=== PATIENT | female | born 1950 | race Caucasian/White ===

== ENCOUNTER 2017-08-16 13:11 | Emergency (ER) | payer MEDICARE, BC ==
--- NOTE | 2017-08-16 15:04 | EDM.PDOC ---
ED HPI GENERAL MEDICAL PROBLEM - General Chief Complaint: Chest Pain Stated Complaint: CHEST PAIN Time Seen by Provider: 08/16/17 13:15 Source of Information: Reports: Patient, Family History Limitations: Reports: No Limitations - History of Present Illness INITIAL COMMENTS - FREE TEXT/NARRATIVE: 67 y.o.w.f in prev healthy condition, came to the ed withy her SO due to C/P starting spontaneously which she rates of 3/10. No N/V/D, no diaphoresis, no F/ C, no trauma or ant other acute medical issue. BP 119/63 Pulse 68 Temp 36.6 Pulse ox 97% on RA Onset Date: 08/16/17 Onset Time: 11:00 Duration: Improving Location: Reports: Chest Quality: Reports: Dull Severity: Mild Improves with: Reports: Rest Worsens with: Reports: Movement Context: Reports: Other (cp started spontaneously) Associated Symptoms: Reports: No Other Symptoms Treatments COURT OFFICER: Reports: Aspirin left chest Pain Score (Numeric/FACES): 3 - Related Data Allergies Allergy/AdvReac Type Severity Reaction Status Date / Time No Known Allergies Allergy Verified 04/06/14 19:48 Home Meds: Home Meds Cetirizine [ZyrTEC] 10 mg PO DAILY 04/06/14 [History] Gluc HCl/Csa/Yusuf Hy/Hyalur Ac [Glucosamine Chondroitin] 1 tab PO DAILY [History] Naproxen Sodium [Aleve] 220 mg PO BID 04/06/14 [History] Past Medical History Other Cardiovascular History: IRREGULAR HEART RATE "RACING" Other Dermatologic History: CYST ON UPPER BACK Social & Family History - Tobacco Use Smoking Status *Q: Never Smoker - Alcohol Use Days Per Week of Alcohol Use: 1 Number of Drinks Per Day: 1 Total Drinks Per Week: 1 - Recreational Drug Use Recreational Drug Use: No Drug Use in Last 12 Months: No - Living Situation & Occupation Living situation: Reports: ED ROS GENERAL - Review of Systems Review Of Systems: See Below Constitutional: Reports: No Symptoms HEENT: Reports: No Symptoms Respiratory: Reports: No Symptoms Cardiovascular: Reports: Chest Pain Endocrine: Reports: No Symptoms GI/Abdominal: Reports: No Symptoms : Reports: No Symptoms Musculoskeletal: Reports: No Symptoms Skin: Reports: No Symptoms Neurological: Reports: No Symptoms Psychiatric: Reports: No Symptoms Hematologic/Lymphatic: Reports: No Symptoms Immunologic: Reports: No Symptoms ED EXAM, GENERAL - Physical Exam Exam: See Below Exam Limited By: No Limitations General Appearance: Alert, WD/WN, No Apparent Distress Eye Exam: Bilateral Eye: Normal Inspection Ears: Normal External Exam Ear Exam: Bilateral Ear: Auricle Normal Nose: Normal Inspection, Normal Mucosa Throat/Mouth: Normal Inspection, Normal Lips Head: Atraumatic, Normocephalic Neck: Normal Inspection, Supple, Non-Tender Respiratory/Chest: No Respiratory Distress, Lungs Clear Cardiovascular: Normal Peripheral Pulses, Regular Rate, Rhythm, No Edema, No Gallop Peripheral Pulses: 1+: Radial (L) GI/Abdominal: Normal Bowel Sounds, Soft, Non-Tender, No Organomegaly (Female) Exam: Deferred Rectal (Female) Exam: Deferred Back Exam: Normal Inspection, Full Range of Motion Extremities: Normal Inspection, Normal Range of Motion, Non-Tender, No Pedal Edema Neurological: Alert, Oriented, CN II-XII Intact, Normal Cognition Psychiatric: Normal Affect, Normal Mood Skin Exam: Warm, Dry, Intact, Normal Color Lymphatic: No Adenopathy EKG INTERPRETATION EKG Date: 08/16/17 Time: 13:20 Rhythm: NSR Rate (Beats/Min): 74 [place]: Normal P-Wave: Present QRS: Normal ST-T: Normal QT: Normal Comparison: NA - No Prior EKG Course - Vital Signs Text/Narrative:: 67 y.o.w.f in prev healthy condition, came to the ed withy her SO due to C/P starting spontaneously which she rates of 3/10. No N/V/D, no diaphoresis, no F/ C, no trauma or ant other acute medical issue. Pt did not take omeprazole today. BP 119/63 Pulse 68 Temp 36.6 Pulse ox 97% on RA PE: WNWD W F In no acute discomfort, mild epicastric discomfort. Labs: CBC, BMP (BUN 23!)troponin Neg Impression: Atypical C/P Reexam: Pt improved, is in her usual state of health Plan: D/C with instructions Last Recorded V/S: Last Vital Signs Temp 36.6 C 08/16/17 13:15 Pulse 88 08/16/17 13:15 Resp 13 08/16/17 14:45 BP 107/59 L 08/16/17 14:45 Pulse Ox 97 08/16/17 14:45 - Orders/Labs/Meds Orders: Active Orders 24 hr Category Date Time Status EKG 12 Lead [EK] Routine Ther 08/16/17 13:18 Ordered Labs: Laboratory Tests 08/16/17 08/16/17 08/16/17 Range/Units 13:10 13:25 13:25 WBC 4.5 (4.5-12.0) X10-3/uL RBC 4.92 (3.23-5.20) x10(6)uL Hgb 14.6 (11.5-15.5) g/dL Hct 43.7 (30.0-51.3) % MCV 88.9 (80-96) fL MCH 29.6 (27.7-33.6) pg MCHC 33.3 (32.2-35.4) g/dL RDW 13.0 (11.5-15.5) % Plt Count 253 (125-369) X10(3)uL MPV 9.1 (7.4-10.4) fL Neut % (Auto) 64.7 (46-82) % Lymph % (Auto) 23.5 (13-37) % [place] % (Auto) 9.6 (4-12) % Eos % (Auto) 1 (1.0-5.0) % Baso % (Auto) 1 (0-2) % Neut # (Auto) 2.9 (1.6-8.3) # Lymph # (Auto) 1.1 (0.6-5.0) # [place] # (Auto) 0.4 (0.0-1.3) # Eos # (Auto) 0.1 (0.0-0.8) # Baso # (Auto) 0.0 (0.0-0.2) # D-Dimer, Quantitative (100-400) ng/mL Sodium 144 (135-145) mmol/L Potassium 3.9 (3.5-5.3) mmol/L Chloride 106 (100-110) mmol/L Carbon Dioxide 28 (21-32) mmol/L BUN 21 H (7-18) mg/dL Creatinine 0.9 (0.55-1.02) mg/dL Est Cr Clr Drug Dosing 56.78 mL/min Estimated GFR (MDRD) > 60 (>60) BUN/Creatinine Ratio 23.3 H (9-20) Glucose 92 (80-116) mg/dL Calcium 9.6 (8.6-10.2) mg/dL Total Bilirubin 0.7 (0.1-1.3) mg/dL Direct Bilirubin 0.13 (0.10-0.20) mg/dL AST 21 (5-25) IU/L ALT 28 (12-36) U/L Alkaline Phosphatase 85 (56-112) IU/L Troponin I (<0.017-0.056) ng/mL Total Protein 7.6 (6.0-8.0) g/dL Albumin 4.1 (3.2-4.6) g/dL Amylase 99 (25-115) U/L Urine Color Yellow (YELLOW) Urine Appearance Clear (CLEAR) Urine pH 6.0 (5.0-6.5) Ur Specific [place] 1.010 (1.010-1.025) Urine Protein Negative (NEGATIVE) mg/dL Urine Glucose (UA) Normal (NEGATIVE) mg/dL Urine Ketones Negative (NEGATIVE) mg/dL Urine Occult Blood Negative (NEGATIVE) Urine Nitrite Negative (NEGATIVE) Urine Bilirubin Negative (NEGATIVE) Urine Urobilinogen Normal (NEGATIVE) mg/dL Ur Leukocyte Esterase Negative (NEGATIVE) Urine WBC 0-5 (0) Ur Squamous Epith Cells Occasional (NS,R,O) Urine Bacteria Few H (NS) 08/16/17 08/16/17 Range/Units 13:25 13:25 WBC (4.5-12.0) X10-3/uL RBC (3.23-5.20) x10(6)uL Hgb (11.5-15.5) g/dL Hct (30.0-51.3) % MCV (80-96) fL MCH (27.7-33.6) pg MCHC (32.2-35.4) g/dL RDW (11.5-15.5) % Plt Count (125-369) X10(3)uL MPV (7.4-10.4) fL Neut % (Auto) (46-82) % Lymph % (Auto) (13-37) % [place] % (Auto) (4-12) % Eos % (Auto) (1.0-5.0) % Baso % (Auto) (0-2) % Neut # (Auto) (1.6-8.3) # Lymph # (Auto) (0.6-5.0) # [place] # (Auto) (0.0-1.3) # Eos # (Auto) (0.0-0.8) # Baso # (Auto) (0.0-0.2) # D-Dimer, Quantitative < 100 L (100-400) ng/mL Sodium (135-145) mmol/L Potassium (3.5-5.3) mmol/L Chloride (100-110) mmol/L Carbon Dioxide (21-32) mmol/L BUN (7-18) mg/dL Creatinine (0.55-1.02) mg/dL Est Cr Clr Drug Dosing mL/min Estimated GFR (MDRD) (>60) BUN/Creatinine Ratio (9-20) Glucose (80-116) mg/dL Calcium (8.6-10.2) mg/dL Total Bilirubin (0.1-1.3) mg/dL Direct Bilirubin (0.10-0.20) mg/dL AST (5-25) IU/L ALT (12-36) U/L Alkaline Phosphatase (56-112) IU/L Troponin I < 0.017 L (<0.017-0.056) ng/mL Total Protein (6.0-8.0) g/dL Albumin (3.2-4.6) g/dL Amylase (25-115) U/L Urine Color (YELLOW) Urine Appearance (CLEAR) Urine pH (5.0-6.5) Ur Specific [place] (1.010-1.025) Urine Protein (NEGATIVE) mg/dL Urine Glucose (UA) (NEGATIVE) mg/dL Urine Ketones (NEGATIVE) mg/dL Urine Occult Blood (NEGATIVE) Urine Nitrite (NEGATIVE) Urine Bilirubin (NEGATIVE) Urine Urobilinogen (NEGATIVE) mg/dL Ur Leukocyte Esterase (NEGATIVE) Urine WBC (0) Ur Squamous Epith Cells (NS,R,O) Urine Bacteria (NS) Departure - Departure Time of Disposition: 15:01 Disposition: Home, Self-Care 01 Condition: Good Clinical Impression: Atypical chest pain Instructions: Chest Pain Observation Referrals: Abdulaziz Vang MD [Primary Care Provider] - Forms: ED Department Discharge Additional Instructions: Please increase water intake, cont your current meds. Please take Omeprazole daily for 1 week at bed time. Please f/u, please come back to the ed if your symptoms get worse acutely. - My Orders Last 24 Hours: My Active Orders 08/16/17 13:18 EKG 12 Lead [EK] Routine - Assessment/Plan Last 24 Hours: My Active Orders 08/16/17 13:18 EKG 12 Lead [EK] Routine
[2017-08-16 16:47] VITALS: BP 107/59
--- NOTE | 2017-08-17 10:40 | CR ---
INDICATION: Chest pain. CHEST: An AP upright view of the chest was obtained portable 08/16/2017, and compared with 04/06/2014 and 04/03/2011, revealing evidence of exogenous obesity , as previously or increased compared with the previous study. The heart did not appear enlarged. The aorta is tortuous. Minimal calcification is suggested in the arch. Overlying EKG leads are noted. An active infiltrate or effusion was not identified. IMPRESSION: 1. No acute process. 2. Exogenous obesity. 3. ASD aorta. MTDD
== END 2017-08-16 15:12 | disposition home or self-care (01) ==
LOC: FB.ED 13:11
DX: R07.89 Other chest pain (principal); Z79.899 Other long term (current) drug therapy
CPT/HCPCS: 36415; 71045; 80048; 80076; 81001; 82150; 84484; 85025; 85379; 93005; 93010; 99285

== ENCOUNTER 2020-10-20 08:17 | Day surgery (SDC) | payer MEDICARE, BC ==
[~2020-10-20 08:17] MED LIST: Lactated Ringers 1,000 ML IV SCH; Sodium Chloride 0.9% 10 ML Syringe FLUSH PRN
[2020-10-20] MEDS ORDERED: Propofol 200 MG/20 ML SDV IV ONE (08:18)
[2020-10-20] MEDS ORDERED: Lidocaine 1% PF 2 ML SDV INJECT ONE (08:18)
--- NOTE | 2020-10-20 10:14 | PCM.OPNOTE ---
- General Post-Op/Procedure Note Date of Surgery/Procedure: 10/20/20 Operative Procedure(s): c scope Findings: sigmoid diverticulosis Pre Op Diagnosis: hx of colon polyp Post-Op Diagnosis: sigmoid diverticulosis Anesthesia Technique: MIKEY Primary Surgeon: Harvey Mares Anesthesia Provider: Shimon Potter Pathology: none Complications: None Condition: Good Free Text/Narrative:: see dictation # [id number]
[2020-10-20 10:25] VITALS: BP 119/75; PULSE 62
--- NOTE | 2020-10-21 06:54 | OR ---
DATE OF OPERATION: 10/20/2020 SURGEON: Harvey Mares MD PROCEDURE PERFORMED: Colonoscopy. PREOPERATIVE DIAGNOSIS: Personal history of colon polyps. POSTOPERATIVE DIAGNOSIS: Sigmoid diverticulosis. INDICATIONS FOR PROCEDURE: This is a 70-year-old white female referred for screening colonoscopy. She has a personal history of colon polyps in the past. She was offered and accepted C-scope. DESCRIPTION OF OPERATION: After an excellent IV sedation was administered, digital rectal exam was performed. No marked abnormality was noted. Flexible colonoscope was inserted and advanced to the cecum. The prep was excellent. The following findings were noted. After identifying the cecum by the usual anatomic markers, the ascending colon was noted to be unremarkable. The transverse colon was unremarkable. The descending colon was unremarkable. Sigmoid, scattered diverticulosis. Rectum and anus, unremarkable. The patient tolerated the procedure well. RECOMMENDATIONS: Repeat colonoscopy in 10 years. /[id number] /CLARISSEL
== END 2020-10-20 10:35 | disposition home or self-care (01) ==
LOC: FB.SDS 08:17
PROVIDERS: ATTEND Surgery
DX: Z12.11 Encounter for screening for malignant neoplasm of colon (principal); K57.30 Diverticulosis of large intestine without perforation or abscess without bleeding; Z86.010 Personal history of colon polyps; Z79.899 Other long term (current) drug therapy; Z90.49 Acquired absence of other specified parts of digestive tract; Z98.890 Other specified postprocedural states
CPT/HCPCS: G0105; J2704; J7120; 00811-QZ

== ENCOUNTER 2024-09-12 10:16 | Emergency (ER) | payer BC, MEDICARE ==
[2024-09-12 11:08] LABS: BASOPHILS PERCENT AUTO 0.6 % (0.2-1.5); EOSINOPHILS ABSOLUTE AUTO 0.1 x10-3/uL (0.0-0.8); EOSINOPHILS PERCENT AUTO 1.2 % (0.6-8.1); HEMOGLOBIN 14.8 g/dL (11.4-15.5); LYMPHOCYTES ABSOLUTE AUTO 1.1 x10-3/uL (1.0-4.4); LYMPHOCYTES PERCENT AUTO 23.9 % (18.4-52.1); MEAN CORPUSCULAR HEMOGLOBIN 31.9 pg (23.9-33.9); MEAN CORPUSCULAR HGB CONC 34.4 g/dL (31.9-34.8); MEAN CORPUSCULAR VOLUME 92.9 fL (76.7-100.5); MEAN PLATELET VOLUME 8.1 fL (7.1-12.4); MONOCYTES ABSOLUTE AUTO 0.6 x10-3/uL (0.3-1.0); MONOCYTES PERCENT AUTO 12.3 % (4.4-15.7); PLATELET COUNT,PLT 240 x10(3)uL (151-488); RED BLOOD CELL COUNT 4.63 x10(6)uL (3.60-5.20); WHITE BLOOD CELL COUNT,WBC 4.8 x10-3/uL (3.0-10.3)
[2024-09-12 11:10] VITALS: BP 140/77; PULSE 75
[2024-09-12 11:14] LABS: BLOOD UREA NITROGEN,BUN 10 mg/dL (7-18); CALCIUM 9.9 mg/dL (8.6-10.2); CARBON DIOXIDE,CO2 28 mmol/L (21-32); CHLORIDE,CL 104 mmol/L (100-110); ESTIMATED GFR 59 mL/min (>60); GLUCOSE RANDOM 97 mg/dL (80-116); POTASSIUM,K 3.9 mmol/L (3.5-5.3); SODIUM,NA 141 mmol/L (135-145)
[2024-09-12 11:20] LABS: ALANINE AMINOTRANSFERASE,ALT 42 U/L (12-36); ALBUMIN 3.8 g/dL (3.2-4.6); ALKALINE PHOSPHATASE 75 IU/L (56-112); ASPARTATE AMNIOTRANSFERASE,AST 24 IU/L (5-25); BILIRUBIN TOTAL 0.6 mg/dL (0.1-1.3); PROTEIN TOTAL,TP 7.5 g/dL (6.0-8.0)
[2024-09-12 11:25] LABS: TROPONIN I 8.8 pg/mL (4.0-60.3)
== END 2024-09-12 16:13 | disposition home or self-care (01) ==
LOC: FB.ED 10:16
DX: R07.89 Other chest pain (principal); Z79.899 Other long term (current) drug therapy
CPT/HCPCS: 36415; 71046; 80053; 83735; 83880; 84484; 85025; 85379; 93005; 99285

== ENCOUNTER 2025-04-20 08:17 | Day surgery (SDC) | payer MEDICARE ==
[~2025-04-20 08:17] MED LIST changes: -Lactated Ringers 1,000 ML IV SCH
[2025-04-20] MEDS ORDERED: Propofol 200 MG/20 ML SDV IV ONE (08:18)
[2025-04-20] MEDS: Lactated Ringers 1,000 ML IV SCH (09:04)
[2025-04-20 10:24] VITALS: BP 155/80; PULSE 68
== END 2025-04-20 10:20 | disposition home or self-care (01) ==
LOC: FB.SDS 08:17
PROVIDERS: ATTEND Surgery
DX: K29.50 Unspecified chronic gastritis without bleeding (principal); K29.80 Duodenitis without bleeding; K31.89 Other diseases of stomach and duodenum; R13.10 Dysphagia, unspecified; K21.9 Gastro-esophageal reflux disease without esophagitis; I48.91 Unspecified atrial fibrillation; Z79.899 Other long term (current) drug therapy
CPT/HCPCS: 00731; 43239; 88305; 88342; 99100; A9270; J2003; J2704; J7120